=== PATIENT | male | born 1995 | race Two or more races ===

== ENCOUNTER 2019-07-16 22:42 | Inpatient (IN) | payer OTHER ==
[~2019-07-16] VITALS: Ht 180.3 cm; Wt 110.0 kg
[2019-07-16] MEDS ORDERED: ONDANSETRON ODT 4 MG TAB PO ONE (23:00)
[2019-07-16 23:07] LABS: Basophils # (auto) 0.1 uL; Basophils % (auto) 0.4 % (0.0-2.0); Eosinophils # (auto) 0.1 uL; Eosinophils % (auto) 0.7 % (0.0-7.0); Hematocrit 40.5 % (41.0-53.0); Hemoglobin 13.9 g/dL (13.5-17.5); Lymphocytes # (auto) 1.8 uL; Lymphocytes % (auto) 10.8 % (10.0-50.0); Mean Corpuscular Hemoglobin 30.7 pg (28.0-32.0); Mean Corpuscular Hgb Conc. 34.3 g/dL (32.0-36.0); Mean Corpuscular Volume 89.5 fL (80.0-100.0); Monocytes # (auto) 0.9 uL; Monocytes % (auto) 5.8 % (0.0-12.0); Neutrophils # (auto) 13.4 uL; Neutrophils % (auto) 82.3 % (37.0-80.0); Platelet Count (auto) 357 10^3/uL (140-450); Red Blood Cells 4.53 10^6/uL (4.5-5.90); Red Cell Distribution Width 12.8 % (11.8-14.3); White Blood Cell 16.3 10^3/uL (4.4-10.8)
[2019-07-16 23:24] LABS: Albumin 4.2 g/dL (3.4-5.0); BUN/Creatinine Ratio 15.7; Calcium 8.7 mg/dL (8.5-10.1); Potassium 3.4 mmol/L (3.5-5.1)
[2019-07-16 23:27] LABS: Bilirubin, Total 0.6 mg/dL (0.2-1.0)
[2019-07-16] MEDS ORDERED: SODIUM CHLORIDE 0.9% 1,000 ML IVB ONE (23:40)
[2019-07-16] MEDS ORDERED: metroNIDAZOLE 500MG/100ML 100 ML IV ONE (23:45)
[2019-07-16] MEDS ORDERED: PIPERACILLIN-TAZO 4.5GM 100 ML IV ONE (23:45)
[2019-07-16] MEDS ORDERED: ONDANSETRON HCL 4 MG/2 ML VIAL IV ONE (23:45)
[2019-07-16] MEDS ORDERED: HYDROmorphone HCL 2 MG/ML VL IV ONE (23:45)
[2019-07-17 00:08] LABS: INR 0.98 (0.9-1.15); Partial Thromboplastin Time 27.9 sec (23.64-32.05)
[2019-07-17] MEDS ORDERED: HYDROmorphone HCL 2 MG/ML VL IV ONE (03:00)
[2019-07-17] MEDS ORDERED: ONDANSETRON HCL 4 MG/2 ML VIAL IV ONE (03:00)
[2019-07-17 03:30] LABS: Urine Bacteria NONE SEEN /hpf (None Seen); Urine Blood Negative /uL (Negative); Urine Mucus FEW (None Seen); Urine Specific Gravity 1.026 (1.001-1.035); Urine WBC 1 /hpf (0 - 3)
[2019-07-17] MEDS ORDERED: MORPHINE SULFATE 4 MG/ML SYR/VIAL IV PRN (05:15)
[2019-07-17] MEDS ORDERED: ONDANSETRON HCL 4 MG/2 ML VIAL IV PRN ×2 (05:15→10:30)
[2019-07-17] MEDS ORDERED: SODIUM CHLORIDE 0.9% 1,000 ML IV SCH (05:15)
[2019-07-17] MEDS: metroNIDAZOLE 500MG/100ML 100 ML IV SCH ×3 (06:19→22:15)
[2019-07-17] MEDS ORDERED: ceFAZolin 1GM/50ML 50 ML IV ONE ×2 (08:36→09:43)
[2019-07-17] MEDS: cefTRIAXone 1GM/50ML D5W 50 ML IV SCH (09:00)
[2019-07-17] MEDS ORDERED: MIDAZOLAM HCL 1MG/1ML-2 ML VIAL ONE (09:16)
[2019-07-17] MEDS ORDERED: LIDOCAINE 2% (LOCAL ANESTH.) PF 5ml SDV ONE (09:17)
[2019-07-17] MEDS ORDERED: ROCURONIUM 10MG/ML 10ML VIAL IV ONE (09:17)
[2019-07-17] MEDS ORDERED: SUCCINYLCHOLINE CHLORIDE 20 MG/ML 10ML VIAL IV ONE (09:59)
[2019-07-17] MEDS ORDERED: PROPOFOL 10 MG/ML 20 ML IV ONE (10:04)
[2019-07-17] MEDS ORDERED: METOCLOPRAMIDE HCL 5MG/ml INJ 2ml VIAL ONE (10:04)
[2019-07-17] MEDS ORDERED: fentaNYL CITRATE 100 MCG/2 ML VL ONE (10:13)
[2019-07-17] MEDS ORDERED: HYDROmorphone HCL 2 MG/ML VL IV PRN ×2 (10:30)
[2019-07-17] MEDS ORDERED: NALOXONE HCL 0.4 MG/ML VIAL IV PRN (10:30)
--- NOTE | 2019-07-17 10:34 | NUR ---
1030 07/17/19 Contacted managed care analyst Maximo at [facility] and requested authorization to be provided for patient's continued stay. Per Maximo the assigned manager case today is Aubrey and she has to review today's clinical information before further authorization can be given. I requested that he have manager case Aubrey give me a call regarding the requested authorization.
[2019-07-17] MEDS ORDERED: NEOSTIGMINE 1 MG/ML INJ (10mg/10ML VIAL) ONE (10:51)
[2019-07-17] MEDS ORDERED: GLYCOPYRROLATE 0.2 MG/ML 1ML VIAL ONE (10:51)
--- NOTE | 2019-07-17 11:45 | NUR ---
Med Surg admit from [facility] admitted to unit after SBAR received. Patient oriented to Jewell Galeano RN, unit, room, bed, and unit policies regarding patient care and visiting hours. Patient weighed by bedscale and encouraged to call if they need something. All questions and concerns addressed, patient verbalized understanding. No signs and symptoms of distress/SOB noted.
[2019-07-17] MEDS: SOD CHL 0.9%/ KCL 20MEQ 1,000 ML IV SCH ×2 (13:36→22:00)
[2019-07-17 14:48] VITALS: BP 106/58
--- NOTE | 2019-07-17 17:22 | NUR ---
Patient temperature 100.6 Paged Fidel Liu, received new orders for patient's fever, orders read back and verified.
[2019-07-17 17:25] VITALS: BP 103/55
[2019-07-17] MEDS ORDERED: ACETAMINOPHEN 500 MG TAB PO PRN (17:30)
--- NOTE | 2019-07-17 18:55 | NUR ---
Endorsed care to NOC RN.
--- NOTE | 2019-07-17 19:25 | NUR ---
Opening Shift Note Assumed care of patient, awake and alert. Visitors at bed side. No S/S of distress/SOB. Patient states tolerable abdominal pain at this moment. Will continue assessing pain. Patient s/p laparoscopic appendectomy, with 3 abdominal incisions, umbilical incision with noted minimal drainage, abdominal binder in place. Ambulation encouraged, patient states understanding. Instructed on POC and to call for assist PRN, will continue to monitor for changes Q1hr and PRN.
--- NOTE | 2019-07-17 19:27 | NUR ---
TEMP REASSESSMENT PER REPORT PATIENT MEDICATED WITH PRN FOR TEMP OF 100.6 CURRENT TEMPERATURE: 98.4 WILL CONTINUE TO MONITOR
--- NOTE | 2019-07-17 19:36 | NUR ---
PATIENT AMBULATING [place]. ACTIVITY TOLERATED WELL.
[2019-07-17 22:00] VITALS: BP 110/69
[2019-07-18 05:00] VITALS: BP 112/70
[2019-07-18 05:29] LABS: Basophils # (auto) 0 uL; Basophils % (auto) 0.4 % (0.0-2.0); Eosinophils # (auto) 0 uL; Eosinophils % (auto) 0.5 % (0.0-7.0); Hematocrit 38.1 % (41.0-53.0); Hemoglobin 13.2 g/dL (13.5-17.5); Lymphocytes # (auto) 1.8 uL; Lymphocytes % (auto) 20.7 % (10.0-50.0); Mean Corpuscular Hemoglobin 31.4 pg (28.0-32.0); Mean Corpuscular Hgb Conc. 34.7 g/dL (32.0-36.0); Mean Corpuscular Volume 90.5 fL (80.0-100.0); Monocytes # (auto) 0.9 uL; Monocytes % (auto) 10.8 % (0.0-12.0); Neutrophils # (auto) 5.9 uL; Neutrophils % (auto) 67.6 % (37.0-80.0); Nucleated Red Blood Cells % 0.1 %; Platelet Count (auto) 286 10^3/uL (140-450); Red Blood Cells 4.21 10^6/uL (4.5-5.90); Red Cell Distribution Width 12.7 % (11.8-14.3); White Blood Cell 8.8 10^3/uL (4.4-10.8)
[2019-07-18] MEDS: metroNIDAZOLE 500MG/100ML 100 ML IV SCH ×2 (05:43→12:47)
[2019-07-18 05:48] LABS: BUN/Creatinine Ratio 12.5; Calcium 8.4 mg/dL (8.5-10.1)
--- NOTE | 2019-07-18 06:30 | NUR ---
PATIENT AMBULATING [place]. ACTIVITY TOLERATED WELL.
--- NOTE | 2019-07-18 07:16 | NUR ---
Opening Shift Note Assumed care of patient, awake and alert. No S/S of distress/SOB or pain. Instructed on POC and to call for assist PRN, will continue to monitor for changes Q1hr and PRN.
[2019-07-18 08:01] VITALS: BP 127/67
--- NOTE | 2019-07-18 08:43 | NUR ---
0828 07/18/19 Contacted benefits consulting analystaraceli De Santiago at [facility] and requested authorization be provided for continued stay. Per Anyi, Catering Attendant is not assigned yet to this patient-they come in between [phone]. Per Anyi this case was denied yesterday because operative report was not sent over. I let her know that operative report was not available. I did let her know that I faxed MD progress notes for 07/17 yesterday afternoon at 1400. I also let her know that Aubrey never called me yesterday regarding this patient when I had requested from benefits consulting analyst Alan that she return my call. Per Anyi further authorization can not be given until today's pillowcase folder reviews the current clinical information. I faxed clinical information for 07/18 to [facility] including labs, vitals, medication list and yesterday's operative report. I requested that benefits consulting analystaraceli De Santiago have the assigned pillowcase folder call me by 1000 today regarding authorization.
[2019-07-18] MEDS: SOD CHL 0.9%/ KCL 20MEQ 1,000 ML IV SCH (08:55)
[2019-07-18] MEDS: cefTRIAXone 1GM/50ML D5W 50 ML IV SCH (08:55)
--- NOTE | 2019-07-18 10:38 | NUR ---
1030 07/18/19 I contacted [facility] and spoke with Middle School Band Teacher Aubrey and requested authorization for patient's continued stay. Per Aurbey, she has to go over the operative report with her MD before she can issue authorization for yesterday 07/17-and her MD is not in yet. She was unable to tell me when he would be in, and unable to give me a timeframe for the decision on authorization. Notice Regarding Post Stabilization faxed to [facility]. Per Dr. Menjivar-patient will discharge home today.
[2019-07-18] MEDS ORDERED: METR500T PO (11:21)
[2019-07-18] MEDS ORDERED: LEVO-28 PO (11:21)
[2019-07-18] MEDS ORDERED: IBUP400T21 PO (11:22)
[2019-07-18] MEDS ORDERED: PANT40TA2 PO (11:22)
[2019-07-18 13:00] VITALS: BP 122/70
== END 2019-07-18 15:45 | disposition home or self-care (01) | DRG 342 ==
LOC: ER 22:42 → OVERFLOW 22:43 → WEST WING 07-17 11:43
PROVIDERS: ADMIT Nurse Practitioner; ATTEND Internal Medicine
PROC: 0DTJ4ZZ Resection of Appendix, Percutaneous Endoscopic Approach (ICD-10-PCS; principal; 2019-07-17 10:03)
DX: K35.80 Unspecified acute appendicitis (principal); R65.10 Systemic inflammatory response syndrome (SIRS) of non-infectious origin without acute organ dysfunction; E66.01 Morbid (severe) obesity due to excess calories; Z68.33 Body mass index [BMI] 33.0-33.9, adult
CPT/HCPCS: 36415; 71045; 74176; 80048; 80053; 81001; 83690; 85025; 85610; 85730; 86850; 86900; 86901; 87040; 96361; 96365; 96367; 96375; G0378; J0330; J0690; J0696; J2001; J2250; J2405; J2543; J2704; J3490; Q0162